=== PATIENT | female | born 1995 | race Two or more races ===

== ENCOUNTER → 2017-09-04 | Outpatient (CLI) | payer MEDICAID ==
[2017-09-04 10:53] LABS: Basophils # (auto) 0.1 uL; Basophils % (auto) 0.6 % (0.0-2.0); Eosinophils # (auto) 0 uL; Eosinophils % (auto) 0.3 % (0.0-7.0); Hematocrit 41.4 % (36.0-46.0); Hemoglobin 14.3 g/dL (12.2-16.2); Lymphocytes # (auto) 1.8 uL; Lymphocytes % (auto) 21.3 % (10.0-50.0); Mean Corpuscular Hemoglobin 32.4 pg (28.0-32.0); Mean Corpuscular Hgb Conc. 34.5 g/dL (32.0-36.0); Mean Corpuscular Volume 94.1 fL (80.0-100.0); Monocytes # (auto) 0.3 uL; Monocytes % (auto) 3.8 % (0.0-12.0); Neutrophils # (auto) 6.4 uL; Nucleated Red Blood Cells % 0.1 %; Platelet Count (auto) 333 10^3/uL (140-450); Red Cell Distribution Width 12.7 % (11.8-14.3); White Blood Cell 8.6 10^3/uL (4.4-10.8)
== END | disposition home or self-care (01) ==
LOC: LAB 10:03
PROVIDERS: ATTEND Obstetrics & Gynecology
DX: Z36.9 Encounter for antenatal screening, unspecified (principal); Z3A.00 Weeks of gestation of pregnancy not specified
CPT/HCPCS: 36415; 83036; 84702; 85025; 86703; 86762; 86850; 86900; 86901; 87086; 87340

== ENCOUNTER → 2017-10-03 | Outpatient (CLI) | payer MEDICAID ==
[2017-10-03 17:06] LABS: Alcohol, Urine < 3.0 mg/dL (0-5); Amphetamine Screen, Urine NEGATIVE (NEGATIVE); Barbiturate Scree,Urine NEGATIVE (NEGATIVE); Benzodiazephine Screen, Urine NEGATIVE (NEGATIVE); Cannabinoid Screen, Urine NEGATIVE (NEGATIVE); Cocaine Screen, Urine NEGATIVE (NEGATIVE); Opiate Scree,Urine NEGATIVE (NEGATIVE); Phencyclidine Screen, Urine NEGATIVE (NEGATIVE)
== END | disposition home or self-care (01) ==
LOC: LAB 15:52
PROVIDERS: ATTEND Obstetrics & Gynecology
DX: Z34.80 Encounter for supervision of other normal pregnancy, unspecified trimester (principal); Z3A.00 Weeks of gestation of pregnancy not specified
CPT/HCPCS: 80307

== ENCOUNTER 2017-10-20 15:07 | Emergency (ER) | payer MEDICAID, OTHER ==
[~2017-10-20] VITALS: Ht 157.5 cm; Wt 73.0 kg
[2017-10-20 16:21] VITALS: BP 123/67
[2017-10-20] MEDS ORDERED: cefTRIAXone SOD 1,000 MG VL IM ONE (17:30)
== END 2017-10-20 17:57 | disposition home or self-care (01) ==
LOC: ER 15:15
DX: O99.512 Diseases of the respiratory system complicating pregnancy, second trimester (principal); J06.9 Acute upper respiratory infection, unspecified; J02.9 Acute pharyngitis, unspecified; Z3A.24 24 weeks gestation of pregnancy
CPT/HCPCS: 96372

== ENCOUNTER 2018-01-15 08:40 | Observation (INO) | payer OTHER ==
[2018-01-15] MEDS ORDERED: PREN-96 PO (09:31)
== END 2018-01-15 09:25 | disposition home or self-care (01) | DRG 566 ==
LOC: LDRP 08:40
PROVIDERS: ADMIT Specialist; ATTEND Specialist
DX: O40.2XX0 Polyhydramnios, second trimester, not applicable or unspecified (principal); Z3A.29 29 weeks gestation of pregnancy
CPT/HCPCS: 59025; 81002; G0378

== ENCOUNTER 2018-01-22 09:00 | Observation (INO) | payer MEDICAID ==
[~2018-01-22 09:00] MED LIST: PREN-96 PO
== END 2018-01-22 11:05 | disposition home or self-care (01) | DRG 566 ==
LOC: LDRP 09:00
PROVIDERS: ADMIT Obstetrics & Gynecology; ATTEND Obstetrics & Gynecology
DX: O40.3XX0 Polyhydramnios, third trimester, not applicable or unspecified (principal); Z3A.30 30 weeks gestation of pregnancy
CPT/HCPCS: 59025; 81002; G0378

== ENCOUNTER 2018-01-27 18:12 | Observation (INO) | payer MEDICAID | END 2018-01-27 19:36 | disposition home or self-care (01) | DRG 566 | LOC: LDRP 18:12 | PROVIDERS: ADMIT Specialist; ATTEND Specialist | DX: O26.893 Other specified pregnancy related conditions, third trimester (principal); R10.9 Unspecified abdominal pain; Z3A.31 31 weeks gestation of pregnancy | CPT/HCPCS: 59025; 81002; G0378 ==

== ENCOUNTER 2018-01-30 10:00 | Observation (INO) | payer MEDICAID ==
[~2018-01-30] VITALS: Ht 157.5 cm; Wt 85.7 kg
[2018-01-30] MEDS ORDERED: TERBUTALINE SULFATE 1 MG/ML 1ML VIAL SC SCH (10:45)
== END 2018-01-30 12:00 | disposition home or self-care (01) | DRG 563 ==
LOC: LDRP 10:00
PROVIDERS: ADMIT Obstetrics & Gynecology; ATTEND Obstetrics & Gynecology
DX: O60.03 Preterm labor without delivery, third trimester (principal); Z3A.32 32 weeks gestation of pregnancy
CPT/HCPCS: 59025; 81002; 96372; G0378; J3105

== ENCOUNTER 2018-02-06 09:55 | Observation (INO) | payer MEDICAID | END 2018-02-06 10:45 | disposition home or self-care (01) | DRG 566 | LOC: LDRP 09:55 | PROVIDERS: ADMIT Specialist; ATTEND Specialist | DX: O40.3XX0 Polyhydramnios, third trimester, not applicable or unspecified (principal); O26.893 Other specified pregnancy related conditions, third trimester; H53.8 Other visual disturbances; Z3A.33 33 weeks gestation of pregnancy | CPT/HCPCS: 59025; 81002; G0378 ==

== ENCOUNTER 2018-02-13 11:30 | Observation (INO) | payer MEDICAID | END 2018-02-13 13:15 | disposition home or self-care (01) | DRG 563 | LOC: LDRP 11:30 | PROVIDERS: ADMIT Obstetrics & Gynecology; ATTEND Obstetrics & Gynecology | DX: O60.03 Preterm labor without delivery, third trimester (principal); O40.3XX0 Polyhydramnios, third trimester, not applicable or unspecified; Z3A.34 34 weeks gestation of pregnancy | CPT/HCPCS: 59025; 81002; G0378 ==

== ENCOUNTER 2018-02-20 10:15 | Observation (INO) | payer MEDICAID | END 2018-02-20 11:20 | disposition home or self-care (01) | DRG 566 | LOC: LDRP 10:15 | PROVIDERS: ADMIT Specialist; ATTEND Specialist | DX: O40.3XX0 Polyhydramnios, third trimester, not applicable or unspecified (principal); Z3A.35 35 weeks gestation of pregnancy | CPT/HCPCS: 59025; 76818; 81002; G0378 ==

== ENCOUNTER 2018-02-23 08:15 | Observation (INO) | payer MEDICAID ==
[~2018-02-23] VITALS: Ht 157.5 cm; Wt 87.5 kg
== END 2018-02-23 09:20 | disposition home or self-care (01) | DRG 566 ==
LOC: LDRP 08:15
PROVIDERS: ADMIT Specialist; ATTEND Specialist
DX: O40.3XX0 Polyhydramnios, third trimester, not applicable or unspecified (principal); Z3A.35 35 weeks gestation of pregnancy
CPT/HCPCS: 59025; 76818; 81002; G0378

== ENCOUNTER 2018-03-02 08:00 | Observation (INO) | payer MEDICAID | END 2018-03-02 09:25 | disposition home or self-care (01) | DRG 566 | LOC: LDRP 08:00 | PROVIDERS: ADMIT Obstetrics & Gynecology; ATTEND Obstetrics & Gynecology | DX: O62.9 Abnormality of forces of labor, unspecified (principal); Z3A.36 36 weeks gestation of pregnancy | CPT/HCPCS: 76818; G0378; 59025; 81002 ==

== ENCOUNTER 2018-03-06 09:40 | Observation (INO) | payer MEDICAID | END 2018-03-06 10:55 | disposition home or self-care (01) | DRG 861 | LOC: LDRP 09:40 | PROVIDERS: ADMIT Specialist; ATTEND Specialist | DX: Z34.93 Encounter for supervision of normal pregnancy, unspecified, third trimester (principal); Z3A.37 37 weeks gestation of pregnancy | CPT/HCPCS: 59025; 76818; 81002; G0378 ==

== ENCOUNTER 2018-03-09 11:55 | Observation (INO) | payer MEDICAID | END 2018-03-09 13:15 | disposition home or self-care (01) | DRG 566 | LOC: LDRP 11:55 | PROVIDERS: ADMIT Specialist; ATTEND Specialist | DX: O40.3XX0 Polyhydramnios, third trimester, not applicable or unspecified (principal); Z3A.37 37 weeks gestation of pregnancy | CPT/HCPCS: 59025; 76818; 81002; G0378 ==

== ENCOUNTER 2018-03-13 09:35 | Observation (INO) | payer MEDICAID | END 2018-03-13 12:40 | disposition home or self-care (01) | DRG 566 | LOC: LDRP 09:35 | PROVIDERS: ADMIT Obstetrics & Gynecology; ATTEND Obstetrics & Gynecology | DX: O40.3XX0 Polyhydramnios, third trimester, not applicable or unspecified (principal); Z3A.38 38 weeks gestation of pregnancy | CPT/HCPCS: 59025; 76818; 81002; G0378 ==

== ENCOUNTER 2018-03-15 14:30 | Observation (INO) | payer MEDICAID ==
[~2018-03-15] VITALS: Ht 157.5 cm; Wt 91.2 kg
[2018-03-15] MEDS ORDERED: NALBUPHINE HCL 10 MG/1ml INJECTION IV ONE (15:45)
[2018-03-15 16:44] LABS: Basophils # (auto) 0.1 uL; Basophils % (auto) 0.4 % (0.0-2.0); Eosinophils # (auto) 0 uL; Eosinophils % (auto) 0.1 % (0.0-7.0); Hematocrit 44.5 % (36.0-46.0); Lymphocytes # (auto) 1.6 uL; Lymphocytes % (auto) 10.4 % (10.0-50.0); Mean Corpuscular Hemoglobin 32.7 pg (28.0-32.0); Mean Corpuscular Hgb Conc. 33.8 g/dL (32.0-36.0); Mean Corpuscular Volume 96.8 fL (80.0-100.0); Monocytes # (auto) 0.7 uL; Monocytes % (auto) 4.9 % (0.0-12.0); Neutrophils # (auto) 12.8 uL; Neutrophils % (auto) 84.2 % (37.0-80.0); Platelet Count (auto) 289 10^3/uL (140-450); Red Cell Distribution Width 12.7 % (11.8-14.3); White Blood Cell 15.2 10^3/uL (4.4-10.8)
[2018-03-15 16:48] LABS: Albumin 3.1 g/dL (3.4-5.0); BUN/Creatinine Ratio 12.9; Bilirubin, Total 0.4 mg/dL (0.2-1.0); Calcium 8.9 mg/dL (8.5-10.1); Potassium 3.8 mmol/L (3.5-5.1); Total Protein 7.7 g/dL (6.4-8.2); Uric Acid 5.6 mg/dL (2.6-6.0)
[2018-03-15 17:05] LABS: INR 0.85 (0.9-1.15); Partial Thromboplastin Time 35.5 sec (23.78-33.04); Prothrombin Time 9.2 sec (9.27-12.13)
[2018-03-15 17:10] LABS: Urine Bacteria FEW /hpf (None Seen); Urine Blood Negative /uL (Negative); Urine Specific Gravity 1.017 (1.001-1.035); Urine WBC 6 /hpf (0 - 5)
[2018-03-15] MEDS ORDERED: hydrALAZINE HCL 20 MG/ML VL IV ONE (17:45)
[2018-03-15] MEDS ORDERED: LACTATED RINGER'S 1,000 ML IV SCH (19:45)
== END 2018-03-15 21:30 | disposition home or self-care (01) | DRG 566 ==
LOC: LDRP 14:30
PROVIDERS: ADMIT Obstetrics & Gynecology; ATTEND Obstetrics & Gynecology
DX: O62.9 Abnormality of forces of labor, unspecified (principal); Z3A.38 38 weeks gestation of pregnancy
CPT/HCPCS: 36415; 59025; 76818; 80053; 81001; 81002; 84550; 85025; 85610; 85730; 86850; 86900; 86901; 96374; 96375; G0378; J0360; J2300; 96365; 96366

== ENCOUNTER 2018-03-16 10:55 | Observation (INO) | payer MEDICAID | END 2018-03-16 12:54 | disposition home or self-care (01) | DRG 566 | LOC: LDRP 10:55 | PROVIDERS: ADMIT Obstetrics & Gynecology; ATTEND Obstetrics & Gynecology | DX: O13.3 Gestational [pregnancy-induced] hypertension without significant proteinuria, third trimester (principal); O26.893 Other specified pregnancy related conditions, third trimester; O62.9 Abnormality of forces of labor, unspecified; R51 Headache; Z3A.38 38 weeks gestation of pregnancy | CPT/HCPCS: 59025; 81002; G0378 ==

== ENCOUNTER 2018-03-16 19:20 | Inpatient (IN) | payer MEDICAID ==
[~2018-03-16] VITALS: Ht 157.5 cm; Wt 90.7 kg
[2018-03-16] MEDS ORDERED: LACTATED RINGER'S 1,000 ML IV SCH (21:01)
[2018-03-16] MEDS ORDERED: LACT. RINGERS/OXYTOCIN 20UNITS 1,000 ML IV SCH (21:01)
[2018-03-16] MEDS ORDERED: NALBUPHINE HCL 10 MG/1ml INJECTION IV PRN (21:15)
[2018-03-16] MEDS ORDERED: PROMETHAZINE HCL 25 MG/ML 1ML IV PRN (21:15)
[2018-03-16] MEDS ORDERED: PHISODERM TOP SOLN 240ML BTL TOP PRN (21:15)
[2018-03-16] MEDS ORDERED: WITCH HAZEL-GLYCERIN PAD TOP PRN (21:15)
[2018-03-16] MEDS ORDERED: LIDOCAINE 2% (LOCAL ANESTH.) PF 5ml SDV ID ONE (21:15)
[2018-03-16] MEDS ORDERED: DERMOPLAST 60ML BOTTLE TOP PRN (21:15)
[2018-03-16] MEDS ORDERED: LACT. RINGERS/OXYTOCIN 20UNITS 1,000 ML IV ONE (21:18)
[2018-03-16] MEDS ORDERED: LIDOCAINE 2% (LOCAL ANESTH.) PF 5ml SDV ONE ×2 (21:18→21:41)
[2018-03-16] MEDS ORDERED: METHYLERGONOVINE MALEATE 0.2 MG/ML AMP IM ONE (21:18)
[2018-03-16 23:16] LABS: Hemoglobin 11.7 g/dL (12.2-16.2); Mean Corpuscular Hemoglobin 32.5 pg (28.0-32.0); Mean Corpuscular Hgb Conc. 33.4 g/dL (32.0-36.0); Mean Corpuscular Volume 97.3 fL (80.0-100.0); Platelet Count (auto) 294 10^3/uL (140-450); Red Cell Distribution Width 12.6 % (11.8-14.3); White Blood Cell 28.7 10^3/uL (4.4-10.8)
[2018-03-16 23:24] LABS: Basophils % (manual) 0 (0.0-2.0); Blast Cells 0; Eosinophils % (manual) 0 (0-7); Metamyelocytes % 0; Myelocytes % 0; Promyelocytes % 0; Reactive Lymphocytes 0
[2018-03-16] MEDS: IBUPROFEN 600 MG TAB PO PRN (23:27)
[2018-03-16 23:34] LABS: INR 0.86 (0.9-1.15); Partial Thromboplastin Time 31.7 sec (23.78-33.04); Prothrombin Time 9.3 sec (9.27-12.13)
[2018-03-16 23:36] LABS: Albumin 2.5 g/dL (3.4-5.0); BUN/Creatinine Ratio 13.7; Calcium 8.3 mg/dL (8.5-10.1); Potassium 3.6 mmol/L (3.5-5.1)
[2018-03-16 23:39] LABS: Bilirubin, Total 0.4 mg/dL (0.2-1.0); Total Protein 6.5 g/dL (6.4-8.2)
[2018-03-16] MEDS ORDERED: AMMONIA 0.33 ML INHALANT IN ONE (23:47)
[2018-03-17 00:45] LABS: Band Neutrophils % (manual) 2
[2018-03-17 00:46] LABS: Lymphocytes % (manual) 3 (10.0-50.0); Monocytes % (manual) 5 (0-12)
[2018-03-17] MEDS: ACETAMINOPHEN 325 MG TAB PO PRN ×2 (01:25→14:55)
[2018-03-17 03:00] VITALS: BP 119/74
[2018-03-17 07:05] VITALS: BP 127/83
[2018-03-17] MEDS: IBUPROFEN 600 MG TAB PO PRN ×2 (09:29→19:33)
[2018-03-17] MEDS: DOCUSATE CALCIUM 240 MG CAP PO SCH (09:31)
[2018-03-17 11:00] VITALS: BP 133/66
[2018-03-17 15:05] VITALS: BP 128/76
[2018-03-17 19:30] VITALS: BP 112/67
[2018-03-17 23:00] VITALS: BP 117/64
[2018-03-18] MEDS: ACETAMINOPHEN 325 MG TAB PO PRN (02:51)
[2018-03-18 03:00] VITALS: BP 136/79
[2018-03-18] MEDS: IBUPROFEN 600 MG TAB PO PRN ×2 (04:19→08:38)
[2018-03-18 07:10] VITALS: BP 115/53
[2018-03-18] MEDS: DOCUSATE CALCIUM 240 MG CAP PO SCH (08:38)
[2018-03-18 10:30] VITALS: BP 132/81
[2018-03-19 05:06] LABS: RPR Non Reactive (Non Reactive)
== END 2018-03-18 10:30 | disposition home or self-care (01) | DRG 560 ==
LOC: LDRP 19:20 → OBSVTOIN 19:20 → LDRP 03-17 10:10
PROVIDERS: ADMIT Obstetrics & Gynecology; ATTEND Obstetrics & Gynecology
PROC: 10E0XZZ Delivery of Products of Conception, External Approach (ICD-10-PCS; principal; 2018-03-16)
PROC: 0KQM0ZZ Repair Perineum Muscle, Open Approach (ICD-10-PCS; 2018-03-16)
DX: O40.3XX0 Polyhydramnios, third trimester, not applicable or unspecified (principal); O70.1 Second degree perineal laceration during delivery; Z37.0 Single live birth; Z3A.38 38 weeks gestation of pregnancy; Z3A.39 39 weeks gestation of pregnancy
CPT/HCPCS: 36415; 59025; 59409; 80053; 85007; 85027; 85610; 85730; 86592; 86850; 86900; 86901; 96365; 96366; A6257; J2001; J2590